=== PATIENT | female | born 1955 | race Caucasian/White ===

== ENCOUNTER → 2018-07-29 | Outpatient (CLI) | payer MEDICARE ==
--- NOTE | 2018-07-29 11:19 | WOMENS IMAGING REPORT ---
EXAM DESCRIPTION: BONE DENSITY HIP/SPINE COMPLETED DATE/TIME: 07/29/2018 9:39 am REASON FOR STUDY: OSTEOPOROSIS M81.0 AGE-RELATED OSTEOPOROSIS W/O CURRENT PATHOLOGICAL FRAC COMPARISON: None. TECHNIQUE: Dual-Energy X-ray Absorptiometry (DEXA) of the left forearm and Hip. LIMITATIONS: None. FINDINGS: Left forearm: The bone mineral density (BMD) measured left forearm in the AP projection correlates with a T-score o f -1.7, which is osteopenic as defined by the World Health Organization. HIP: The bone mineral density (BMD) measured in the left femoral neck at the hip correlates with a T-score of -1.0, which is osteopenic as defined by the World Health Organization. IMPRESSION: 1. Left forearm: Osteopenic 2. HIP: Osteopenic COMMENT: The World Health Organization defines low BMD as follows: T-score: Normal: Greater than -1.0 Osteopenia: Between -1.0 and -2.5 Osteoporosis: Less than -2.5 without fractures Established osteoporosis: Less than -2.5 with fractures In general, you may wish to consider: Diagnosis Treatment Follow-up DEXA Normal BMD Prevention 2-3 years Osteopenia Prevention/Therapy 1-2 years Osteoporosis Therapy Yearly TECHNICAL DOCUMENTATION: JOB ID: [id number] [employer]- All Rights Reserved Reading location - IP/workstation name: [email or web address]
== END ==
LOC: WI 07:58
PROVIDERS: ATTEND Family Medicine Geriatric Medicine
DX: M81.0 Age-related osteoporosis without current pathological fracture (principal)
CPT/HCPCS: 77080

== ENCOUNTER → 2018-07-29 | Outpatient (CLI) | payer MEDICARE ==
--- NOTE | 2018-07-29 10:43 | RADIOLOGY REPORT (SQ) ---
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 NUMBER OF VIEWS: Two views TECHNIQUE: AP and lateral radiographic images acquired of the right knee. LIMITATIONS: None. FINDINGS: MINERALIZATION: Normal. BONES: No acute fracture or dislocation. No worrisome bone lesions. JOINT: There is some decrease in the medial compartment. SOFT TISSUES: No soft tissue swelling. No radio-opaque foreign body. OTHER: No other significant finding. IMPRESSION: There is some decrease in the medial compartment. No other significant findings. TECHNICAL DOCUMENTATION: JOB ID: [id number] [employer]- All Rights Reserved Reading location - IP/workstation name: [email or web address]
--- NOTE | 2018-07-29 10:50 | RADIOLOGY REPORT (SQ) ---
EXAM DESCRIPTION: C SP 4 OR 5 VIEWS; LUMBAR SPINE W/FLEX/EXT COMPLETED DATE/TIME: 07/29/2018 9:47 am REASON FOR STUDY: CERVICALGIA;RIGHT MEDIAL KNEE PAIN; POST LAMINECTOMY SYNDROME COMPARISON: None. FINDINGS: 7 view cervical spine: Normal alignment. C3 through C5 anterior instrumentation. This l ooks intact. C5-6 and C6-7 disc disease. Bilateral C6-7 foraminal narrowing related to uncovertebra l spurs. No fracture or bone lesion. Clear lung apices. 7 view lumbar spine including upright flexion extension lateral: L4 through S1 bilateral rods and sc rews. There is an additional screw fragment on the right at the S1 level. The other S1 screws look intact. Limited flexion extension excursion. No abnormal motion. TECHNICAL DOCUMENTATION: JOB ID: [id number] Reading location - IP/workstation name: [email or web address]
--- NOTE | 2018-07-29 10:50 | RADIOLOGY REPORT (SQ) ---
EXAM DESCRIPTION: C SP 4 OR 5 VIEWS; LUMBAR SPINE W/FLEX/EXT COMPLETED DATE/TIME: 07/29/2018 9:47 am REASON FOR STUDY: CERVICALGIA;RIGHT MEDIAL KNEE PAIN; POST LAMINECTOMY SYNDROME COMPARISON: None. FINDINGS: 7 view cervical spine: Normal alignment. C3 through C5 anterior instrumentation. This l ooks intact. C5-6 and C6-7 disc disease. Bilateral C6-7 foraminal narrowing related to uncovertebra l spurs. No fracture or bone lesion. Clear lung apices. 7 view lumbar spine including upright flexion extension lateral: L4 through S1 bilateral rods and sc rews. There is an additional screw fragment on the right at the S1 level. The other S1 screws look intact. Limited flexion extension excursion. No abnormal motion. TECHNICAL DOCUMENTATION: JOB ID: [id number] Reading location - IP/workstation name: [email or web address]
== END ==
LOC: OD 09:01
PROVIDERS: ATTEND Pain Medicine Pain Medicine
DX: M25.561 Pain in right knee (principal); M96.1 Postlaminectomy syndrome, not elsewhere classified; M54.2 Cervicalgia
CPT/HCPCS: 72050; 72114

== ENCOUNTER → 2018-08-30 | Outpatient (CLI) | payer MEDICARE ==
--- NOTE | 2018-08-30 10:03 | XCELERA REPORT ---
[address] [address] Transthoracic Echocardiogram Report Name: ROCHELLE RYAN Age: 63 yrs Gender: Female : 1955 Patient Status: Outpatient Patient Location: [facility] Study Date: 08/30/2018 09:55 AM Procedure: A complete two-dimensional transthoracic echocardiogram was performed (2D, M-mode, spectral and color flow Doppler). The study was technically adequate with some images being suboptimal in quality. Reason For Study: MURMUR Ordering Physician: EVA ALEX Performed By: Estelle Pandey Interpretation Summary The left ventricular ejection fraction is normal. There is mild concentric left ventricular hypertrophy. The left ventricle is grossly normal size. Doppler measurements suggest pseudonormalized left ventricular relaxation, which is associated with grade II/IV or mild to moderate diastolic dysfunction Wall motion cannot be accurately commented on, but no definite regional wall motion abnormalities noted. Borderline right ventricular enlargement. The left atrial size is normal. The right atrium is normal in size There is a trace amount of mitral regurgitation There is no mitral valve stenosis. No aortic regurgitation is present. There is no aortic valve stenosis. Increased velocity at LVOT related to hyperdynamic circulation and mild LVH. There is a trace to mild amount of tricuspid regurgitation There is mild pulmonary hypertension by echo Right ventricular systolic pressure is estimated to be elevated at 30-40mmHg. The aortic root is not well visualized but is probably normal size. The inferior vena cava appeared normal and decreased > 50% with respiration (RAP 5-10 mmHg) Heart murmur related to increased velocity at LVOT related to hyperdynamic circulation and mild LVH. MMode/2D Measurements & Calculations RVDd: 3.2 cm LVIDd: 3.8 cm FS: 40.6 % Ao root diam: 2.6 cm IVSd: 1.3 cm LVIDs: 2.3 cm EDV(Teich): 62.5 ml Ao root area: 5.3 cm2 LVPWd: 1.1 cm ESV(Teich): 17.5 ml EF(Teich): 72.1 % Doppler Measurements & Calculations MV E max aleksander: MV dec slope: Ao V2 max: LV V1 max P.2 cm/sec 226.3 cm/sec 15.7 mmHg MV A max aleksander: 469.2 cm/sec2 Ao max PG: LV V1 mean P.1 cm/sec MV dec time: 20.5 mmHg 6.8 mmHg MV E/A: 0.71 0.14 sec Ao V2 mean: LV V1 max: 160.8 cm/sec 197.8 cm/sec Ao mean PG: LV V1 mean: 11.4 mmHg 119.9 cm/sec Ao V2 VTI: 34.0 cm LV V1 VTI: 27.8 cm PA V2 max: TR max aleksander: 173.3 cm/sec 273.2 cm/sec PA max PG: TR max P.9 mmHg 12.0 mmHg Left Ventricle The left ventricle is grossly normal size. There is mild concentric left ventricular hypertrophy. The left ventricular ejection fraction is normal. Doppler measurements suggest pseudonormalized left ventricular relaxation, which is associated with grade II/IV or mild to moderate diastolic dysfunction. Wall motion cannot be accurately commented on, but no definite regional wall motion abnormalities noted. Right Ventricle Borderline right ventricular enlargement. There is normal right ventricular wall thickness. The right ventricular systolic function is normal. Atria The right atrium is normal in size. The left atrial size is normal. Mitral Valve The mitral valve is grossly normal. There is no mitral valve stenosis. There is a trace amount of mitral regurgitation. Aortic Valve The aortic valve is grossly normal. The aortic valve is sclerotic, but shows no functional abnormality. There is no aortic valve stenosis. No aortic regurgitation is present. Tricuspid Valve The tricuspid valve is not well visualized, but is grossly normal. There is no tricuspid stenosis. There is a trace to mild amount of tricuspid regurgitation. There is mild pulmonary hypertension by echo. Right ventricular systolic pressure is estimated to be elevated at 30-40mmHg. Pulmonic Valve The pulmonic valve is not well seen, but is grossly normal. Great Vessels The aortic root is not well visualized but is probably normal size. The inferior vena cava appeared normal and decreased > 50% with respiration (RAP 5-10 mmHg). Effusions There is no pericardial effusion. : EVA ALEX > Lang Alonzo
== END ==
LOC: RAD 08:43
PROVIDERS: ATTEND Family Medicine Geriatric Medicine
DX: R01.1 Cardiac murmur, unspecified (principal)
CPT/HCPCS: 93306